=== PATIENT | female | born 1965 | race Caucasian/White ===

== ENCOUNTER → 2017-01-29 | Outpatient (CLI) | payer OTHER ==
[~2017-01-29] MED LIST: ADVIL200 M2; FEROSUL325 ( 651 PO; NO MEDICATIONS
--- NOTE | ~2017-01-29 | MY11 ---
[facility] A Service of [facility] & [facility] RADIOLOGY TEXT RESULTS PATIENT: ELIO SLATER LOCATION: [facility] : [birth year] UNIT #: [id number] AGE: [address]: Ellen Acuna APRN SEX: F ORDER DR: [id number] [facility] [address] [place], [place] [address] [id number] O MR#: [id number] Acc #: [id number] NAME: ELIO SLATER : 1965 SEX: F STUDY DATE/TIME: 01/29/2017 16:29 UNIT: [facility] ROOM: STUDY DESCRIPTION: MY Mammogram Screening Dig Christopher Attending Physician: Ellen Acuna A.P.R.N. Referring Physician: Ellen Acuna A.P.R.N. Ordering Physician: Ellen Acuna A.P.R.N. Primary Care Physician: Ellen Acuna A.P.R.N. MEDICAL IMAGING REPORT This report is preliminary unless electronic signature is present EXAM Bilateral digital screening mammogram CAD 01/29/2017 INDICATIONS 51-year-old female for routine screening. No reported problems and no personal or known family history of breast cancer. No surgeries. TECHNIQUE CC and MLO views of breast were obtained and reviewed with an approved CAD device COMPARISON 03/27/2015 06/23/2013 12/23/2007 FINDINGS Breast parenchyma is composed of scattered fibroglandular densities and unchanged. There is no new dominant nodule, mass or suspicious cluster of microcalcifications. Benign calcifications and benign-appearing nodularity in the breast bilaterally is stable. IMPRESSION Benign screening mammogram. One year followup recommended. Patients over the age of 40 are entered into a reminder system with target due date for the next mammogram. A result letter will also be sent to the patient. BIRADS: 2 Benign finding. Dictated by... Genaro Rico M.D. THIS IS AN ELECTRONICALLY VERIFIED REPORT Genaro Rico M.D. at 01/30/2017 3:38 PM [facility] A Service of [facility] & [facility] RADIOLOGY TEXT RESULTS PATIENT: LEIO SLATER [id number] [birth year] UNIT #: [id number] AGE: [address]: Ellen Acuna APRN SEX: F ORDER DR: Azam TD: 01/30/2017 10:38 JOB #: [id number] MEDICAL IMAGING REPORT COPY
== END | disposition home or self-care (01) ==
LOC: CWCC 16:15
DX: Z12.31 Encounter for screening mammogram for malignant neoplasm of breast (principal)
CPT/HCPCS: G0202

== ENCOUNTER 2017-03-10 20:42 | Emergency (ER) | payer OTHER ==
--- NOTE | ~2017-03-10 | CT16 ---
[facility] A Service of [facility] RADIOLOGY TEXT RESULTS PATIENT: ELIO SLATER LOCATION: [facility] : 65 UNIT #: [id number] AGE: [address]: Jaden Mccain MD SEX: F ORDER DR: [id number] [address] [address] [id number] E MR#: [id number] Acc #: [id number] NAME: ELIO SLATER : 1965 SEX: F STUDY DATE/TIME: 03/10/2017 21:20 UNIT: SED ROOM: STUDY DESCRIPTION: CT Angio Chest for PE Attending Physician: Jaden Mccain M.D. Ordering Physician: Jaden Mccain M.D. Primary Care Physician: Ellen Acuna A.P.R.N. MEDICAL IMAGING REPORT This report is preliminary unless electronic signature is present. EXAM CT chest PE protocol HISTORY Chest pain. Was at [facility] had 20-minute episode of chest pain, shortness of air. TECHNIQUE This CT exam was performed with one or more of the following radiation dose reduction techniques: automatic exposure control, adjustment of mA and/or kV according to patient size, and iterative reconstruction. FINDINGS Axial images performed through the chest following IV contrast. 3-D sagittal and coronal reconstructed images reviewed at a workstation. Pulmonary parenchyma appears normal. Trachea and bronchi unremarkable. Normal enhancement of the pulmonary arteries. No evidence of embolus. Heart size within normal limits. The aorta appears normal. No significant adenopathy. Small amount of residual thymic tissue. Upper abdomen unremarkable. Osseous structures, thoracic inlet and extrathoracic soft tissues appear normal. IMPRESSION Normal CT chest PE protocol. Dictated by... Rommel Mayer M.D. THIS IS AN ELECTRONICALLY VERIFIED REPORT Rommel Mayer M.D. at 03/11/2017 3:34 PM DIVINE/miguel [facility] A Service of [facility] RADIOLOGY TEXT RESULTS PATIENT: ELIO SLATER LOCATION: SED : 65 UNIT #: [id number] AGE: [address]: Jaden Mccain MD SEX: F ORDER DR: TD: 03/11/2017 08:18 JOB #: [id number] MEDICAL IMAGING REPORT Page 1 of 1
--- NOTE | ~2017-03-10 | EKG ---
PATIENT: ELIO SLATER UNIT #: [id number] Ventricular Rate: 53 BPM Atrial Rate: 53 BPM P-R Interval: 150 ms QRS Duration: 96 ms Q-T Interval: 434 ms QTC Calculation(Bezet): 407 ms P [place]: 88 degrees Calculated T [place]: 40 degrees Diagnosis Line: Sinus bradycardia Diagnosis Line: Otherwise normal ECG Diagnosis Line: No previous ECGs available Diagnosis Line: Confirmed by DANIEL ZABALA MD ([id number]) on 03/11/2017 Diagnosis Line: 8:04:37 PM INTERPRETING MD: SAGRARIO JAMISON
[2017-03-10 20:39] LABS: BASOPHIL# 0.1 X10e3 (0-0.3); BASOPHIL% 0.8 % (0-2.5); DIFF IND NO; EOSINOPHIL# 0.2 X10e3 (0-0.7); EOSINOPHIL% 3.7 % (0.0-7.0); HEMATOCRIT 40.4 % (35.0-45.0); HEMOGLOBIN 13.6 gm/dL (12.0-16.0); LYMPHOCYTE# 2.1 X10e3 (1.0-3.5); LYMPHOCYTE% 31.7 % (17.0-45.0); MEAN CELL VOLUME 89.8 FL (83-96); MEAN CORPUSCULAR HEMOGLOBIN 30.2 PG (28-34); MEAN CORPUSCULAR HGB CONC 33.6 g/dL (30-36); MEAN PLATELET VOLUME 7.8 FL (6.5-11.5); MONOCYTE# 0.6 X10e3 (0-1.0); MONOCYTE% 8.5 % (3.0-12.0); NEUTROPHIL# 3.6 X10e3 (1.5-7.1); NEUTROPHIL% 55.3 % (40-75); PLATELET COUNT 216 X10e3 (140-420); RED CELL DISTRIBUTION WIDTH 12.6 % (11.0-15.5); WHITE BLOOD COUNT 6.6 X10e3 (4.0-10.5)
[2017-03-10 20:43] LABS: INR 1.2; PROTHROMBIN TIME (PATIENT) 13.3 SECONDS (9.5-12.4)
[2017-03-10 20:48] LABS: POC - CKMB 1.9 ng/mL (0.0-7.9); POC - TROPONIN <0.05 ng/mL (<=0.05)
[2017-03-10 20:52] LABS: ALKALINE PHOSPHATASE 56 U/L (32-92); ALT (SGPT) 16 U/L (10-40); AST (SGOT) 21 U/L (10-42); BILIRUBIN, DIRECT <0.1 mg/dL (0.0-0.2); BILIRUBIN,INDIRECT 0.5 mg/dL (0.0-0.9); BILIRUBIN,TOTAL 0.6 mg/dL (0.2-2.0); BLOOD UREA NITROGEN 19 mg/dL (9-23); BUN/CREATININE RATIO 21.11; CALCIUM SERUM 9.7 mg/dL (8.4-10.2); CARBON DIOXIDE 27 mmol/L (22-31); CHLORIDE 103 mmol/L (100-111); CREATININE SERUM 0.9 mg/dL (0.6-1.4); GLOM FILT RATE Estimated 74.1 mL/min (>60); GLUCOSE FASTING 115 mg/dL (70-110); POTASSIUM 3.5 mmol/L (3.5-5.1); SODIUM 138 mmol/L (135-145)
[2017-03-10 21:08] LABS: POC - TROPONIN <0.05 ng/mL (<=0.05)
[2017-03-10 22:54] LABS: POC - CKMB 1.4 ng/mL (0.0-7.9); POC - TROPONIN <0.05 ng/mL (<=0.05)
== END 2017-03-10 23:05 | disposition home or self-care (01) ==
LOC: SED 20:42
PROVIDERS: Emergency Medicine
DX: R07.89 Other chest pain (principal)
CPT/HCPCS: 36415; 71275; 80048; 80076; 82553; 84484; 85025; 85379; 85610; 85730; 93005; 99284; Q9967